=== PATIENT | female | born 1980 | race Caucasian/White ===

== ENCOUNTER 2020-05-11 12:04 | Outpatient (CLI) | payer BC, OTHER ==
--- NOTE | 2020-05-11 17:14 | RAD ---
CERVICAL SPINE: 05/11/20 Four views. HISTORY: Cervical radicular pain. Anterior plate and screws transfix C5, C6, C7. Interbody implants. Vertebral bodies maintain normal h eight and alignment. 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 Posterior spondylosis at C5-6 and C6-7. No change in alignment with flexion and extension. IMPRESSION: Postoperative and degenerative changes noted. POS: AGW
--- NOTE | 2020-05-11 17:24 | MRI ---
MRI CERVICAL SPINE: Indications: Cervical radicular pain. Neck pain. Comparison: None FINDINGS: Post-operative changes are noted. There is hardware consistent with anterior plate and screws transfi samantha C5, C6, and C7 levels. Artifact from this hardware obscures these levels. There appears to be in terbody fusion at these levels. The disc spaces at C2-3, C3-4, and C4-5 are preserved. There is mild loss of disc space at C7-T1. The C2, C3, and C4 vertebrea maintain normal height. C7 appears to maintain normal height. No significant disc bulge or spondylosis seen at C2-3 or C3-4. At C4-5 mild disc bulge with spondylosis minimally effaces the anterior subarachnoid space. No eviden ce of cord impingement. There appears to be spondolytic change posteriorly at C5-6, C6, and C6-7. Artifact from the metallic devices inhibit accurate evaluation. These changes appear to efface the anterior subarachnoid space w ithout significant cord impingement or central canal stenosis. Foramina are suboptimally evaluated du e to artifact. The cervical cord signal appears normal. IMPRESSION: Post operative changes at C5, C6, and C7 with metallic plate and screws and interbody implants. Artif act degrades evaluation of these levels. There appears to be posterior spondylosis with mild effaceme nt of the anterior subarachnoid space throughout these levels. Consider further evaluation with CT ce rvical spine which will enable better evaluation of the foramina and spinal canal. POS: AGW
== END 2020-05-11 12:05 | disposition home or self-care (01) ==
LOC: SCSMRI 12:04
PROVIDERS: ATTEND Nurse Practitioner Family
DX: M47.22 Other spondylosis with radiculopathy, cervical region (principal); Z98.890 Other specified postprocedural states
CPT/HCPCS: 72040; 72141

== ENCOUNTER 2021-03-29 09:40 | Outpatient (CLI) | payer BC, OTHER | END 2021-03-29 09:41 | disposition home or self-care (01) | LOC: BICMAMMO 09:40 | PROVIDERS: ATTEND Family Medicine | DX: Z12.31 Encounter for screening mammogram for malignant neoplasm of breast (principal); Z80.3 Family history of malignant neoplasm of breast | CPT/HCPCS: 77063; 77067 ==

== ENCOUNTER 2023-03-18 11:30 | Outpatient (CLI) | payer BC, OTHER | END 2023-03-18 11:31 | disposition home or self-care (01) | LOC: BICMAMMO 11:30 | PROVIDERS: ATTEND Family Medicine | DX: Z12.31 Encounter for screening mammogram for malignant neoplasm of breast (principal); Z80.3 Family history of malignant neoplasm of breast | CPT/HCPCS: 77063; 77067 ==

== ENCOUNTER 2024-01-02 13:48 | Outpatient (CLI) | payer BC, OTHER | END 2024-01-02 13:49 | disposition home or self-care (01) | LOC: DTY/OP 13:48 | PROVIDERS: ATTEND Surgery | DX: E66.01 Morbid (severe) obesity due to excess calories (principal) | CPT/HCPCS: 97802 ==

== ENCOUNTER 2024-01-30 13:19 | Outpatient (CLI) | payer BC, OTHER | END 2024-01-30 13:20 | disposition home or self-care (01) | LOC: DTY/OP 13:19 | PROVIDERS: ATTEND Surgery | DX: E66.01 Morbid (severe) obesity due to excess calories (principal) | CPT/HCPCS: 97802 ==

== ENCOUNTER 2024-02-27 13:20 | Outpatient (CLI) | payer BC, OTHER | END 2024-02-27 13:21 | disposition home or self-care (01) | LOC: DTY/OP 13:20 | PROVIDERS: ATTEND Surgery | DX: E66.01 Morbid (severe) obesity due to excess calories (principal) | CPT/HCPCS: 97802 ==

== ENCOUNTER 2024-03-04 13:07 | Outpatient (CLI) | payer BC, OTHER | END 2024-03-04 13:08 | disposition home or self-care (01) | LOC: RAD 13:07 | PROVIDERS: ATTEND Internal Medicine | DX: R06.00 Dyspnea, unspecified (principal) | CPT/HCPCS: 71046 ==

== ENCOUNTER 2024-04-09 12:48 | Outpatient (CLI) | payer BC, OTHER | END 2024-04-09 12:49 | disposition home or self-care (01) | LOC: BICMAMMO 12:48 | PROVIDERS: ATTEND Family Medicine | DX: Z12.31 Encounter for screening mammogram for malignant neoplasm of breast (principal); Z80.3 Family history of malignant neoplasm of breast | CPT/HCPCS: 77063; 77067 ==

== ENCOUNTER 2024-06-28 09:15 | Outpatient (CLI) | payer BC, OTHER ==
[2024-06-28 10:11] LABS: #Basophils 0.04 10x3/uL (0.0-0.2); %Basophils 0.4 % (0.0-1.0); %Eosinophils 1.3 % (0.0-10.0); %Lymphocytes 29.8 % (21.0-51.0); %Monocytes 7.1 % (0.0-10.0); %Neutrophils 61.1 % (42.0-75.0); Hematocrit 42.8 % (36.0-47.0); Mean Corpuscular HGB CONC 32.7 g/dL (32.0-36.0); Mean Corpuscular Hemoglobin 28.6 pg (27.0-31.0); Mean Corpuscular Volume 87.3 fL (78.0-98.0); Mean Platelet Volume 8.4 fL (7.4-10.4); Platelet Count 270 10x3/uL (130-400); RBC Distribution Width 12.7 % (11.5-14.5)
[2024-06-28 10:20] LABS: Hemoglobin A1c 6.6 % (4.0-6.0)
[2024-06-28 10:39] LABS: ALT (SGPT) 26 U/L (8-55); AST (SGOT) 15 U/L (5-34); Albumin 3.9 g/dL (3.5-5.0); Alkaline Phosphatase 67 U/L (40-110); Anion Gap 11 mmol/L (10-20); BUN (Urea Nitrogen) 14 mg/dL (7.0-18.7); Bilirubin, Total 0.6 mg/dL (0.2-1.2); Calc. Creatinine Clearance 0 mL/min (70-130); Calcium 9.2 mg/dL (7.8-10.44); Carbon Dioxide 24 mmol/L (22-29); Chloride 105 mmol/L (98-107); Estimated GFR 79; Globulin 3.5 g/dL (2.4-3.5); Glucose 154 mg/dL (70-105); Potassium 4.4 mmol/L (3.5-5.1); Protein, Total 7.4 g/dL (6.0-8.3); Sodium 136 mmol/L (136-145)
[2024-06-28 10:41] LABS: SARS-CoV-2 E Target Negative; SARS-CoV-2 N2 Target Negative; SARS-CoV-2 NAA Rapid Test Not Detected (NotDetected); SARS-CoV-2 RdRP gene Negative
== END 2024-06-28 09:16 | disposition home or self-care (01) ==
LOC: LABBT 09:15
PROVIDERS: ATTEND Surgery
DX: Z01.818 Encounter for other preprocedural examination (principal); E66.01 Morbid (severe) obesity due to excess calories
CPT/HCPCS: 80053; 83036; 85025; 93005; 93010; U0002

== ENCOUNTER 2024-06-28 09:30 | Inpatient (IN) | payer BC, OTHER ==
[2024-06-28 09:29] VITALS: BMI 36.3
[2024-07-06] MEDS ORDERED: Heparin 5,000 UNITS/ML VIAL ONE (07:34)
[2024-07-06] MEDS ORDERED: CEFAZOLIN 2 GM VIAL ONE (07:35)
[2024-07-06] MEDS ORDERED: Bupivacaine 0.25% HCL 30 ML VIAL ONE (08:18)
[2024-07-06] MEDS ORDERED: EPINEPHrine 1 MG/ML VIAL ONE (08:18)
[2024-07-06] MEDS ORDERED: PROPOFOL 20 ML ONE (08:23)
[2024-07-06] MEDS ORDERED: Rocuronium Bromide 10 MG/ML (10ML VIAL) ONE (08:26)
[2024-07-06] MEDS ORDERED: Lidocaine 1% PF 5 ML VIAL ONE (08:26)
[2024-07-06] MEDS ORDERED: Propofol 500 MG/50 ML VIAL ONE (09:14)
[2024-07-06] MEDS ORDERED: fentaNYL PF 100 MCG/2 ML SYRINGE ONE ×3 (09:17→11:49)
[2024-07-06] MEDS ORDERED: ePHEDrine Sulfate 50 MG/10 ML VIAL ONE (10:07)
[2024-07-06] MEDS ORDERED: SUGAMMADEX SODIUM 200 MG/2 ML VIAL ONE (11:11)
[2024-07-06] MEDS ORDERED: PHENYLEPHRINE-NS 100 MCG/ML 10 ML SYRINGE ONE (11:11)
[2024-07-06] MEDS ORDERED: Ondansetron PF 4 MG/2 ML Vial ONE (11:11)
[2024-07-06] MEDS ORDERED: fentaNYL 50 mcg/mL 1 mL Vial ONE (11:19)
[2024-07-06] MEDS ORDERED: Dextrose 5% in Water 1,000 ML IV PRN (12:43)
[2024-07-06] MEDS ORDERED: Glucagon 1 MG/ML KIT IM PRN (12:43)
[2024-07-06] MEDS ORDERED: hydrALAZINE 20 MG/ML VIAL SLOW IVP PRN (12:43)
[2024-07-06] MEDS ORDERED: Ipratropium/Albuterol 3 ML NEB NEB PRN (12:43)
[2024-07-06] MEDS ORDERED: Promethazine HCl 25 MG/ML VIAL IM PRN (12:43)
[2024-07-06] MEDS ORDERED: diphenhydrAMINE 50 MG/ML VIAL IVP PRN (12:43)
[2024-07-06] MEDS ORDERED: traMADol HCl 50 MG TAB PO PRN (12:43)
[2024-07-06] MEDS ORDERED: Dextrose 50% Abboject 50 ML SYRINGE SLOW IVP PRN (12:43)
[2024-07-06] MEDS ORDERED: Amlodipine 5 MG TAB PO PRN (12:43)
[2024-07-06] MEDS ORDERED: Insulin Lispro 100 UNIT/ML 10 ML VIAL SC PRN (12:43)
[2024-07-06] MEDS ORDERED: Promethazine HCl 25 MG/ML VIAL ONE (13:29)
[2024-07-06] MEDS: fentaNYL 50 mcg/mL 1 mL Vial SLOW IVP PRN (18:07)
[2024-07-06] MEDS: Acetaminophen 650 MG/20.3 ML UDCUP PO SCH (18:07)
[2024-07-06] MEDS: Ondansetron PF 4 MG/2 ML Vial IVP PRN (18:07)
[2024-07-06 20:05] VITALS: BP 166/97; TEMP 99
[2024-07-06] MEDS: oxyCODONE 5 MG TAB PO PRN (20:56)
[2024-07-07] MEDS ORDERED: Enoxaparin 40 MG (0.4 mL) SYRINGE SC SCH (09:00)
[2024-07-07] MEDS ORDERED: Pantoprazole 40 MG VIAL IVP SCH (09:00)
[2024-07-07] MEDS ORDERED: Lisinopril 20 MG TAB PO SCH (09:00)
== END 2024-07-07 12:00 | disposition home or self-care (01) | DRG 621 ==
LOC: SURG A 07-06 06:34 → EDSTATUS 07-06 09:30 → SURG B 07-06 14:24
PROVIDERS: ADMIT Surgery; ATTEND Surgery
PROC: 0D164ZA Bypass Stomach to Jejunum, Percutaneous Endoscopic Approach (ICD-10-PCS; principal; 2024-07-06)
DX: E66.01 Morbid (severe) obesity due to excess calories (principal); K21.9 Gastro-esophageal reflux disease without esophagitis; E11.8 Type 2 diabetes mellitus with unspecified complications; G47.33 Obstructive sleep apnea (adult) (pediatric); E78.00 Pure hypercholesterolemia, unspecified; I10 Essential (primary) hypertension; E78.5 Hyperlipidemia, unspecified; Z79.899 Other long term (current) drug therapy; Z79.4 Long term (current) use of insulin; Z79.02 Long term (current) use of antithrombotics/antiplatelets; Z90.710 Acquired absence of both cervix and uterus; Z68.36 Body mass index [BMI] 36.0-36.9, adult
CPT/HCPCS: 36416; J0171; J0665; J1644; J1815; J2405; J2550; J2704; J3010; S2900

== ENCOUNTER 2024-07-21 10:23 | Day surgery (SDC) | payer BC, OTHER ==
[2024-07-21] MEDS: Sodium Chloride 0.9% 1,000 ML IV SCH (10:50)
[2024-07-21 11:00] VITALS: BP 113/69; TEMP 98.6
[2024-07-21] MEDS: Multivitamins, Adult 10 ML, Thiamine HCl 100 MG in Sodium Chloride 0.9% 1,000 ML IV SCH (11:13)
[2024-07-21] MEDS ORDERED: Ondansetron PF 4 MG/2 ML Vial ONE (11:39)
[2024-07-21] MEDS: Ondansetron PF 4 MG/2 ML Vial IVP PRN (11:40)
== END 2024-07-21 12:45 | disposition home or self-care (01) ==
LOC: ONC/OP 10:23
PROVIDERS: ATTEND Surgery
DX: E86.0 Dehydration (principal)
CPT/HCPCS: 96360; 96361; 96375; J2405; J3411; J7030

== ENCOUNTER 2025-04-13 12:33 | Outpatient (CLI) | payer BC, OTHER | END 2025-04-13 12:34 | disposition home or self-care (01) | LOC: BICMAMMO 12:33 | PROVIDERS: ATTEND Family Medicine | DX: Z12.31 Encounter for screening mammogram for malignant neoplasm of breast (principal); Z80.3 Family history of malignant neoplasm of breast | CPT/HCPCS: 77063; 77067 ==